=== PATIENT | male | born 1960 | race Caucasian/White ===

== ENCOUNTER 2023-10-13 18:49 | Emergency (ER) | payer BC, SELFPAY ==
[2023-10-13] VITALS (8 sets, daily range): BP systolic 124–148; BP diastolic 79–105; PULSE 76–89; BMI 29.8
[2023-10-13 19:14] LABS: % Basophils 0.9 % (0-2); % Eosinophils 2.8 % (0-6); % Immature Granulocytes 0.3 % (0-0.5); % Lymphocytes 28.6 % (20.5-51.1); % Monocytes 6.1 % (1.7-9.3); % Neutrophils 61.3 % (42.2-75.2); Absolute Basophils 0.1 10^3/uL (0-0.2); Absolute Eosinophils 0.2 10^3/uL (0-0.7); Absolute Lymphocytes 1.8 10^3/uL (1.2-3.4); Absolute Monocytes 0.4 10^3/uL (0.1-0.6); Absolute Neutrophils 3.9 10^3/uL (1.4-6.5); Hematocrit 41.4 % (39.0-52.0); Mean Corp Hgb Conc. 36.2 g/dL (33.0-37.0); Mean Corpuscular Hgb 30.9 pg (27.0-31.0); Mean Corpuscular Volume 85.2 fL (80.0-94.0); Mean Platelet Volume 9.7 fL (7.4-10.4); Nucleated Red Blood Cells % 0 % (-); Platelet Count 238 10^3/uL (130-400); Red Blood Cell Count 4.86 10^6/uL (4.70-6.10); Red Cell Dist. Width 12.5 % (11.5-14.5); White Blood Cell Count 6.4 10^3/uL (4.8-10.8)
[2023-10-13 19:34] LABS: ALT (SGPT) 28 U/L (0-50); AST (SGOT) 26 U/L (17-59); Albumin 4.4 g/dl (3.5-5.0); Alkaline Phosphatase 66 U/L (38-126); Blood Urea Nitrogen 23 mg/dl (9-20); Calcium 9.6 mg/dl (8.4-10.2); Carbon Dioxide 26 mmol/L (22-30); Chloride 106 mmol/L (98-107); Glucose 156 mg/dl (70-99); Potassium 3.8 mmol/L (3.5-5.1); Sodium 139 mmol/L (135-145); Total Bilirubin 0.4 mg/dl (0.2-1.3); Total Protein 6.9 g/dl (6.3-8.2); eGFR > 60.00
--- NOTE | 2023-10-13 21:02 | ED.GENMED ---
History of Present Illness
General
Chief Complaint: Blood Pressure Problem
Source: patient
Exam Limitations: none
Time Seen by Provider: 10/13/23 20:20
History of Present Illness
History of Present Illness:
This is a 63 year old male that comes in with c/o hypertension. [place] that [place] he got up this morning he was seeing the > then sign. States that he was feeling dizzy like he was drink and this was on and off for
the past couple of days. States that he brought a BP monitor and his BP was 145/104. This was before he took his Lisinopril. Sates that about 2pm it was down to 116/88. States that he has also been SOB after [place]
Denies any fever, chills, chest pain, abd pain, nausea, vomiting, diarrhea, headache, urinary burning.
Past History
Past History
ED Past Medical History: HTN
ED Past Surgical History: None
Social History
Tobacco: Former smoker
Alcohol: Occasional
Personal:
Living: with family
Employment: Employed
Review of Systems
Review of Systems
All Other Systems: ROS reviewed and negative except as documented in HPI and ROS
Constitutional: Reports no symptoms; Denies fever or chills
EENT: Reports no symptoms
Respiratory: Reports trouble breathing; Denies cough
Cardiac: Reports no symptoms; Denies chest pain
ABD/GI: Reports no symptoms; Denies abdominal pain, nausea, vomiting or diarrhea
: Reports no symptoms; Denies dysuria, frequency or urgency
Musculoskeletal: Reports no symptoms
Skin: Reports no symptoms
Neurological: Reports dizzy and other (Seeing a > then sign); Denies headache
Psychiatric: Reports no symptoms
Phy Exam
General Physical Exam
General Presentation: well appearing and no apparent distress
General age: appears stated age
General Skin: warm and dry
General Habitus: normal
General Mental: alert
General Hydration: appears well hydrated
ENT Exam
ENT Exam: TM's normal, pharynx normal and neck supple
Eye Exam
Eye Exam: EOMI
Cardiovascular Exam
Cardiovascular Exam: regular rate/rhythm, no edema, no murmur and normal peripheral pulses
Pulmonary Exam
Pulmonary Exam: lungs clear, no respiratory distress, no rales, chest non tender, no crackles, no rhonchi, no wheezing and no cough
Gastrointestinal Exam
Gastrointestinal Exam: normal bowel sounds, non tender, soft, no organomegaly, no pulsatile mass and non distended
Musculoskeletal Exam
Musculoskeletal Exam: full ROM and no edema
Skin Exam
Skin Exam: normal color, warm/dry, no rash and no petechia
Psychiatric Exam
Psychiatric Exam: normal mood/affect
Course
Orders/Labs/Results
Orders:
Orders
10/13/23 18:57
Electrocardiogram (*1) Urgent
Reason for Study: Chest Pain
Cardiac Monitoring- Treatment ONCE
EKG- Treatment ONCE
O2 Therapy [RESP] Urgent
Titrate/Wean O2 to maintain O2 sat greater than (%): 90
Special Instructions: Maintain sats >/=90%
Pulse Ox/spot Check [RESP] Urgent
Quantity: 1
Special Instructions: ON ROOM AIR
10/13/23 19:08
Complete Blood Count/With Diff Urgent
Comprehensive Metabolic Panel Urgent
10/13/23 21:01
Orthostatic VS- Treatment ONCE
CR Chest - 2 Views Urgent
Comment:
Reason For Exam: SOB
10/13/23 21:02
CT Head W/o Iv Contrast Urgent
Comment:
Reason For Exam: dizzines, > then sign,
10/13/23 21:34
Troponin I Urgent
10/13/23 21:50
Lisinopril [Zestril] 5 mg PO NOW STA
Abnormal Lab Results
10/13/23
19:08
BUN 23 H mg/dl
(9-20)
Glucose 156 H mg/dl
(70-99)
10/13/23 19:08
10/13/23 19:08
Dehydration. Glucose nonfasting.
Vital Signs
Initial and Last Documented VS:
Initial Vital Signs
Temp Pulse Resp BP Pulse Ox
97.8 F 94 19 135/95 99
10/13/23 18:54 10/13/23 18:54 10/13/23 18:54 10/13/23 18:54 10/13/23 18:54
Last Documented Vital Signs
Temp Pulse Resp BP Pulse Ox
97.8 F 74 24 133/90 96
10/13/23 18:54 10/13/23 22:03 10/13/23 21:11 10/13/23 22:03 10/13/23 22:04
MDM/Problems Addressed
Differential Diagnosis Includes:
Hypertension,
MDM/Problems Addressed:
This is a 63 year old male that comes in with c/o hypertension. States that he has also been dizzy like he was drink the past couple of days on and off. States that his BP was elevated today and that he was seeing > then sign. States that he has
also been [place]B [place]
Will check labs. chest x-ray, CT head and Orthostatics.
back into see patient. Patient BP diastolic did elevate with the Orthostatics. At this time his BP is 138/105. Explained that the CT of his head and chest x-ray are normal. Patient to follow up with the family doctor tomorrow and he will need to see
the [facility]. Will give patient Lisinopril 5mg now and recheck in 30 min. If normal BP will discharge home.
Chronic conditions affecting care: HTN
Acute Exacerbation and/or Progression of Chronic Illness: HTN
*Radiology
Radiology exam reviewed: radiology read reviewed (CT head- No acute intracranial abnormality noted. Chest-No acute disease of the chest. )
*Pulse Oximetry
Patient hypoxic: no
*EKG
Interpreted by ED Provider?: Yes
Heart Rate: 78
Rate: normal
Rhythm: sinus
[place]: left axis deviation
Interval: normal interval
QRS Pattern: normal QRS
Ischemia: no ischemia
*Construction Safety Manager Interpretation
Rate: normal
Heart Rate: 77
Rhythm: sinus
*Critical Care Note
Total Time (30-74mins, 75-104mins- exclusive of procedures): Not Applicable
ED Attending Note
-
Portions of this chart may have been created with voice recognition software.� Occasional wrong word or��sound alike� substitutions may have occurred due to the inherent limitations of voice recognition software.
Discharge Plan
Departure
Patient Disposition: Home (Routine Discharge)
Date of Disposition: 10/13/23
Time of Disposition: 22:59
Patient with high blood pressure during this ER visit?: Yes
Condition: Good
Covid-19: Not Applicable
Discharge Problem:
Hypertension
Instructions: High Blood Pressure (DC), BLOOD PRESSURE
Prescriptions:
No Action
omeprazole 40 mg Capsule,Delayed Release(Dr/Ec)
40 mg PO DAILY
lisinopril-hydrochlorothiazide 10-12.5 mg Tablet
1 tab PO DAILY
Referrals:
Naren Bourgeois MD [Family Provider] - Tomorrow
Activity Restrictions/Additional Instructions:
As discussed, your blood work shows a little Dehydration. This is most likely due to the Hydrochlorothiazide. Your CT of the head and chest x-ray are normal. You have been given Lisinopril 5mg here to help keep your BP down. Please call your family
doctor tomorrow for further evaluation and possible to increased or add to your medications for your blood pressure. Please also follow up with the [facility] for further evaluation. IF YOU HAVE ANY OTHER CONCERNS PLEASE RETURN TO THE EMERGENCY
ROOM.
Interventions
Interventions:
*Risk Screen - Suicide Last Done: 10/13/23 18:54
*General Assessment Last Done: 10/13/23 18:54
*Neglect/Abuse Screening Last Done: 10/13/23 18:54
ED- Fall Risk Assessment Last Done: 10/13/23 19:45
*ED COVID-19 Vaccine History Last Done: 10/13/23 18:54
ED- Cardiac Assessment Last Done: 10/13/23 19:45
ED- Neurological Assessment Last Done: 10/13/23 19:45
ED- Pulmonary Assessment Last Done: 10/13/23 19:45
Discharge Date and Time
Print Language: ROMANIAN
[2023-10-13] MEDS: ZESTRIL 5 MG PO (22:03)
[2023-10-13 22:07] LABS: Troponin I < 0.012 ng/ml
== END 2023-10-13 23:00 | disposition home or self-care (01) ==
LOC: EMR 18:49
PROVIDERS: Clinical Nurse Specialist Family Health; Emergency Medicine; EMERGENCY PHYSICIAN Emergency Medicine; FAMILY PHYSICIAN Family Medicine
DX: I10 Essential (primary) hypertension (principal); R06.02 Shortness of breath; Z87.891 Personal history of nicotine dependence
CPT/HCPCS: 99284; 70450; 71046; 80053; 84484; 85025; 93005

== ENCOUNTER → 2023-12-05 13:50 | Outpatient (REF) | payer BC, SELFPAY | LOC: RCS 13:50 | PROVIDERS: ATTENDING PHYSICIAN Internal Medicine Cardiovascular Disease; FAMILY PHYSICIAN Family Medicine | DX: R06.02 Shortness of breath (principal) | CPT/HCPCS: 93306 ==

== ENCOUNTER → 2023-12-11 07:30 | Outpatient (REF) | payer BC, SELFPAY | LOC: DHCBC/DCA 07:30 | PROVIDERS: ATTENDING PHYSICIAN Internal Medicine Cardiovascular Disease; FAMILY PHYSICIAN Family Medicine | DX: R06.02 Shortness of breath (principal) | CPT/HCPCS: 78452; 93017; A9500 ==